=== PATIENT | female | born 1955 | race Caucasian/White ===

== ENCOUNTER → 2017-01-25 | Outpatient (CLI) | payer BC ==
[~2017-01-25] MED LIST: ASPI81TA85 PO; CALC600T60 PO; ESTR625TA PO; MULT1TAB18 PO; VITA400C35 PO; VITA500C24 PO
[2017-01-25 09:00] LABS: MEAN CORPUSCULAR HEMOGLOBIN 34.8 pg (27.0-33.0); MEAN CORPUSCULAR HGB CONC 34.2 g/dl (32.0-36.5); MEAN CORPUSCULAR VOLUME 101.8 fl (80.0-96.0); RED CELL DISTRIBUTION WIDTH 11.3 % (11.5-14.5)
[2017-01-25 09:24] LABS: ALBUMIN 3.7 GM/DL (3.2-5.2); ALBUMIN/GLOBULIN RATIO 1.16 (1.00-1.93); ALKALINE PHOSPHATASE 46 U/L (45-117); ALT/SGPT 16 U/L (12-78); ANION GAP 4 MEQ/L (8-16); AST/SGOT 15 U/L (15-37); BILIRUBIN,TOTAL 0.5 MG/DL (0.2-1.0); BLOOD UREA NITROGEN 10 MG/DL (7-18); CALCIUM LEVEL 9.1 MG/DL (8.8-10.2); CARBON DIOXIDE LEVEL 30 MEQ/L (21-32); CHLORIDE LEVEL 104 MEQ/L (98-107); CHOLESTEROL LEVEL 199 MG/DL (<200); CREATININE FOR GFR 0.85 MG/DL (0.55-1.02); GLOMERULAR FILTRATION RATE > 60.0 (>45); GLUCOSE, FASTING 77 MG/DL (80-110); POTASSIUM SERUM 4.2 MEQ/L (3.5-5.1); SODIUM LEVEL 138 MEQ/L (136-145); TOTAL PROTEIN 6.9 GM/DL (6.4-8.2); TRIGLYCERIDES LEVEL 48 MG/DL (<150)
== END ==
LOC: M LAB 08:02
PROVIDERS: ATTEND Nurse Practitioner Adult Health
DX: E78.2 Mixed hyperlipidemia (principal); R53.83 Other fatigue

== ENCOUNTER 2017-02-21 16:21 | Emergency (ER) | payer BC, OTHER ==
[~2017-02-21] VITALS: Ht 157.5 cm; Wt 48.6 kg
[2017-02-21 16:22] VITALS: BP 112/70
[2017-02-21] MEDS ORDERED: ASPI81TA85 PO (16:42)
[2017-02-21] MEDS ORDERED: VITA500C24 PO (16:42)
[2017-02-21] MEDS ORDERED: MULT1TAB18 PO (16:42)
[2017-02-21] MEDS ORDERED: ESTR625TA PO (16:42)
[2017-02-21] MEDS ORDERED: RABIES VACCINE HUMAN 2.5 INTERNATIONAL UNITS/ML VIAL (90675) IM ONE (17:15)
== END 2017-02-21 17:45 | disposition home or self-care (01) ==
LOC: M ED 16:21
DX: S61.401A Unspecified open wound of right hand, initial encounter (principal); W55.81XA Bitten by other mammals, initial encounter; Y92.9 Unspecified place or not applicable; Y93.9 Activity, unspecified; Y99.8 Other external cause status; Z20.3 Contact with and (suspected) exposure to rabies; Z23 Encounter for immunization; Z90.79 Acquired absence of other genital organ(s); Z88.2 Allergy status to sulfonamides; Z88.8 Allergy status to other drugs, medicaments and biological substances; Z79.82 Long term (current) use of aspirin; Z79.899 Other long term (current) drug therapy

== ENCOUNTER 2017-02-24 16:14 | Emergency (ER) | payer BC, OTHER ==
[~2017-02-24] VITALS: Ht 157.5 cm; Wt 48.6 kg
[2017-02-24 16:14] VITALS: BP 124/64
[~2017-02-24 16:14] MED LIST changes: -CALC600T60 PO; -VITA400C35 PO
[2017-02-24] MEDS ORDERED: VITA400C35 PO (16:26)
[2017-02-24] MEDS ORDERED: CALC600T60 PO (16:26)
[2017-02-24] MEDS ORDERED: ADACEL/BOOSTRIX VACCINE (DIPHTH/PERTUSS/ACELL/TETANUS)0.5ML SYR (90715) IM ONE (17:00)
[2017-02-24] MEDS ORDERED: RABIES VACCINE HUMAN 2.5 INTERNATIONAL UNITS/ML VIAL (90675) IM ONE (17:15)
== END 2017-02-24 17:48 | disposition home or self-care (01) ==
LOC: M ED 16:14
DX: Z20.3 Contact with and (suspected) exposure to rabies (principal); Z23 Encounter for immunization; Z88.2 Allergy status to sulfonamides; Z88.8 Allergy status to other drugs, medicaments and biological substances; Z79.82 Long term (current) use of aspirin; Z79.899 Other long term (current) drug therapy

== ENCOUNTER → 2018-01-31 | Outpatient (CLI) | payer BC ==
[2018-01-31 08:57] LABS: HEMATOCRIT 37.5 % (36.0-47.0); MEAN CORPUSCULAR HEMOGLOBIN 34.9 pg (27.0-33.0); MEAN CORPUSCULAR HGB CONC 34.7 g/dl (32.0-36.5); MEAN CORPUSCULAR VOLUME 100.8 fl (80.0-96.0); PLATELET COUNT, AUTOMATED 238 10^3/uL (150-450); RED BLOOD COUNT 3.72 10^6/uL (4.00-5.40); RED CELL DISTRIBUTION WIDTH 11.8 % (11.5-14.5); WHITE BLOOD COUNT 3.9 10^3/uL (4.0-10.0)
[2018-01-31 09:22] LABS: ALBUMIN 3.7 GM/DL (3.2-5.2); ALBUMIN/GLOBULIN RATIO 1.09 (1.00-1.93); ALKALINE PHOSPHATASE 38 U/L (45-117); ALT/SGPT 28 U/L (12-78); ANION GAP 5 MEQ/L (8-16); AST/SGOT 23 U/L (7-37); BILIRUBIN,TOTAL 0.3 MG/DL (0.2-1.0); BLOOD UREA NITROGEN 16 MG/DL (7-18); CALCIUM LEVEL 8.4 MG/DL (8.8-10.2); CARBON DIOXIDE LEVEL 31 MEQ/L (21-32); CHLORIDE LEVEL 107 MEQ/L (98-107); CHOLESTEROL LEVEL 203 MG/DL (<200); CHOLESTEROL RISK RATIO 1.537 (<5); CREATININE FOR GFR 1.01 MG/DL (0.55-1.30); GLOMERULAR FILTRATION RATE 59.3 (>45); GLUCOSE, FASTING 79 MG/DL (70-100); HDL CHOLESTEROL 132 MG/DL (>40); LDL CHOLESTEROL 59.4 MG/DL (<100); MAGNESIUM LEVEL 2.1 MG/DL (1.8-2.4); NON-HDL-C 71 MG/DL; POTASSIUM SERUM 4.1 MEQ/L (3.5-5.1); SODIUM LEVEL 143 MEQ/L (136-145); TOTAL PROTEIN 7.1 GM/DL (6.4-8.2); TRIGLYCERIDES LEVEL 58 MG/DL (<150)
[2018-02-02 10:27] LABS: VITAMIN B12 LEVEL 894 PG/ML (247-911)
[2018-02-04 00:07] LABS: VITAMIN D 1,25 DIHYDROXY 34.8 pg/mL (19.9-79.3)
== END ==
LOC: M LAB 08:09
DX: R07.89 Other chest pain (principal); Z13.220 Encounter for screening for lipoid disorders; E55.9 Vitamin D deficiency, unspecified; D51.9 Vitamin B12 deficiency anemia, unspecified; R25.2 Cramp and spasm
CPT/HCPCS: 83735

== ENCOUNTER → 2020-12-05 | Outpatient (REF) | payer BC ==
[~2020-12-05] MED LIST changes: -ASPI81TA85 PO; +ASPI81TA86 PO; +CALC600T60 PO; +VITA400C35 PO
== END ==
LOC: M LAB REF 12:05
PROVIDERS: ATTEND Nurse Practitioner Adult Health
DX: R35.0 Frequency of micturition (principal); R31.9 Hematuria, unspecified

== ENCOUNTER → 2021-03-12 | Outpatient (CLI) | payer OTHER ==
[2021-03-12 11:34] LABS: BASO # 0.1 10^3/uL (0.0-0.2); BASO % 1.8 % (0.0-1.0); EOS # 0.1 10^3/uL (0.0-0.5); EOS % 3.2 % (0.0-3.0); HEMATOCRIT 37.9 % (36.0-47.0); HEMOGLOBIN 12.6 g/dl (12.0-15.5); LYMPH # 1.3 10^3/uL (1.5-5.0); LYMPH % 37.2 % (24.0-44.0); MEAN CORPUSCULAR HEMOGLOBIN 33.7 pg (27.0-33.0); MEAN CORPUSCULAR HGB CONC 33.2 g/dl (32.0-36.5); MEAN CORPUSCULAR VOLUME 101.3 fl (80.0-96.0); MONO # 0.4 10^3/uL (0.0-0.8); MONO % 10.9 % (2.0-8.0); NEUTROPHILS # 1.6 10^3/uL (1.5-8.5); NEUTROPHILS % 46.6 % (36.0-66.0); PLATELET COUNT, AUTOMATED 235 10^3/uL (150-450); RED BLOOD COUNT 3.74 10^6/uL (4.00-5.40); WHITE BLOOD COUNT 3.4 10^3/uL (4.0-10.0)
[2021-03-12 11:58] LABS: ERYTHROCYTE SEDIMENTATION RATE 18 mm/hr (0-30)
[2021-03-12 12:21] LABS: ALBUMIN 3.6 GM/DL (3.2-5.2); ALT/SGPT 19 U/L (12-78); BILIRUBIN,TOTAL 0.5 MG/DL (0.2-1.0); BLOOD UREA NITROGEN 12 MG/DL (7-18); CALCIUM LEVEL 9.8 MG/DL (8.8-10.2); CARBON DIOXIDE LEVEL 30 MEQ/L (21-32); CHLORIDE LEVEL 105 MEQ/L (98-107); FOLATE 10.7 NG/ML (>5.4); GLOMERULAR FILTRATION RATE > 60.0 (>45); GLUCOSE, FASTING 79 MG/DL (70-100); RHEUMATOID FACTOR QUANT < 10.0 IU/ML (<15.0); SODIUM LEVEL 140 MEQ/L (136-145); VITAMIN B12 LEVEL 512 PG/ML (247-911)
[2021-03-12 13:16] LABS: HEMOGLOBIN A1c 5.2 %
== END ==
LOC: M WUC 08:14
PROVIDERS: ATTEND Psychiatry & Neurology Neurology
DX: G40.909 Epilepsy, unspecified, not intractable, without status epilepticus (principal)

== ENCOUNTER → 2021-03-29 | Outpatient (CLI) | payer OTHER ==
--- NOTE | 2021-03-30 09:09 | REPMRS ---
Patient History The patient states she had a clinical breast exam on 02-21-21. Patient is postmenopausal and is nulliparous. Family history of colorectal cancer at age 61 in sister. Taking estrogen for 26 years beginning at age 39. Patient states no breast complaints today. Digital Woman Screen Mammo: March 29, 2021 - Exam #: [id number] Bilateral CC and MLO view(s) were taken. Technologist: Rashida Berrios, [employer] Prior study comparison: February 25, 2020, bilateral screening 3D/tomosynthesis, performed at [facility]. February 18, 2019, bilateral screening 3D/tomosynthesis, performed at [facility]. FINDINGS: The breast tissue is extremely dense which could obscure a lesion on mammography. Screening. Digital screening (2D) mammography was performed bilaterally in the CC and MLO projections. Additionally, breast tomosynthesis (3D mammography) was performed bilaterally in the CC and MLO projections. Todays exam was compared to the prior exam/exams. By history, the patient has no complaints of a palpable breast abnormality or other significant breast complaints. The breasts are unchanged in size and shape.Once again, dense heterogenous fibroglandular elements are seen bilaterally in a stable appearing pattern but to such a degree that the sensitivity of the mammogram in detecting cancer is decreased. There are no ulises-soft tissue densities or spiculated masses. There is no internal architectural distortion. Once again, stable benign appearing calcifications are seen.There are no suspicious ulises-calcific clusters. Skin thickening or nipple retraction is not present. IMPRESSION: BI-RADS Category 2- Benign Findings. There is no evidence of malignant alteration of the breasts. Followup examination recommended in one year. The Volpara volumetric breast density category is D, the breasts are extremely dense which lowers the sensitivity of mammography. This mammogram was read with the assistance of [employer],an FDA approved computer aided detection system for mammography. The lifetime Tyrer-Cuzick score is 6.1 % Due to the density of the breasts or Tyrer Cuzick score of 20% or greater, MRI/whole breast screening ultrasound is warranted. Negative x-ray reports should not delay surgical consultation if a dominant or clinically suspicious mass is present. Not all breast cancers can be identified by mammography. Therefore, we recommend that you continue to perform regular breast self-examination and physical examination and then promptly contact your physician of any concerns or changes. Adenosis and dense breasts may obscure an underlying neoplasm. Assessment: BI-RADS/ACR category 2 mammogram. Benign Findings. Recommendation Routine screening mammogram of both breasts in 1 year. Electronically Signed By: Doug Johnson DO 03/30/21 0909
== END ==
LOC: M WHC 16:14
PROVIDERS: ATTEND Nurse Practitioner Adult Health
DX: Z12.31 Encounter for screening mammogram for malignant neoplasm of breast (principal)

== ENCOUNTER → 2021-09-14 | Outpatient (CLI) | payer OTHER ==
[~2021-09-14] MED LIST changes: +BAYE81TA10 PO; +BIMA01SOL OU; +CALC600T61 PO; +FISH1000 PO; +MYRB50TA PO; +OCUVTAB4 PO; +VITA400C50 PO
== END ==
LOC: M LABSMTC 09:17
PROVIDERS: ATTEND Anesthesiology
DX: Z20.828 Contact with and (suspected) exposure to other viral communicable diseases (principal); Z11.59 Encounter for screening for other viral diseases

== ENCOUNTER 2021-09-19 11:51 | Day surgery (SDC) | payer OTHER ==
[~2021-09-19] VITALS: Ht 160 cm; Wt 46.3 kg
[~2021-09-19 11:51] MED LIST changes: +NS 1,000 ML IV ONE
[2021-09-19] MEDS ORDERED: LIDOCAINE 2% 100MG/5ML SDV (FOR ANES.) As Ordered ONE (12:08)
[2021-09-19] MEDS ORDERED: propofoL 200 MG/20 ML VIAL As Ordered ONE (12:08)
[2021-09-19 13:50] VITALS: BP 112/83
== END 2021-09-19 13:52 | disposition home or self-care (01) ==
LOC: M OPP 11:51
PROVIDERS: ATTEND Internal Medicine Gastroenterology
DX: K57.30 Diverticulosis of large intestine without perforation or abscess without bleeding (principal); Z80.0 Family history of malignant neoplasm of digestive organs; K64.1 Second degree hemorrhoids; Z86.73 Personal history of transient ischemic attack (TIA), and cerebral infarction without residual deficits; Z88.2 Allergy status to sulfonamides; Z88.8 Allergy status to other drugs, medicaments and biological substances; Z79.899 Other long term (current) drug therapy

== ENCOUNTER → 2021-11-27 | Outpatient (CLI) | payer MEDICARE, OTHER ==
[~2021-11-27] MED LIST changes: -NS 1,000 ML IV ONE
[2021-11-27 16:41] LABS: BLOOD UREA NITROGEN 11 MG/DL (7-18); GLOMERULAR FILTRATION RATE > 60.0 (>45)
== END ==
LOC: M WUC 10:50
PROVIDERS: ATTEND Psychiatry & Neurology Neurology
DX: I10 Essential (primary) hypertension (principal)

== ENCOUNTER → 2022-09-10 | Outpatient (REF) | payer MEDICARE, OTHER | LOC: M LAB REF 16:30 | PROVIDERS: ATTEND Nurse Practitioner Adult Health | DX: R71.8 Other abnormality of red blood cells (principal) ==

== ENCOUNTER → 2023-10-21 | Outpatient (REF) | payer MEDICARE, OTHER | LOC: M LAB REF 17:33 | PROVIDERS: ATTEND Nurse Practitioner Adult Health | DX: E83.52 Hypercalcemia (principal) ==

== ENCOUNTER → 2023-10-29 | Outpatient (REF) | payer MEDICARE, OTHER | LOC: M LAB REF 12:09 | PROVIDERS: ATTEND Nurse Practitioner Adult Health | DX: H34.231 Retinal artery branch occlusion, right eye (principal) ==

== ENCOUNTER → 2023-11-12 | Outpatient (CLI) | payer MEDICARE, OTHER | LOC: M CARPUL 08:03 | PROVIDERS: ATTEND Ophthalmology | DX: H34.231 Retinal artery branch occlusion, right eye (principal); H34.01 Transient retinal artery occlusion, right eye ==

== ENCOUNTER → 2023-11-13 | Outpatient (CLI) | payer MEDICARE, OTHER ==
[~2023-11-13] MED LIST changes: +PROHANCE 279.3MG/ML 15ML VIAL As Ordered ONE
== END ==
LOC: M PLARAD 14:36 → M RAD 14:36
PROVIDERS: ATTEND Nurse Practitioner Adult Health
DX: H34.231 Retinal artery branch occlusion, right eye (principal)
CPT/HCPCS: 70549; A9576

== ENCOUNTER → 2023-11-21 | Outpatient (CLI) | payer MEDICARE, OTHER ==
[~2023-11-21] MED LIST changes: -PROHANCE 279.3MG/ML 15ML VIAL As Ordered ONE
[2023-11-21 11:43] LABS: INR 0.98; PARTIAL THROMBOPLASTIN TIME 26.2 SECONDS (24.8-34.2); PROTHROMBIN TIME 12.7 SECONDS (12.5-14.5)
== END ==
LOC: M LAB 10:17
PROVIDERS: ATTEND Ophthalmology
DX: H34.231 Retinal artery branch occlusion, right eye (principal)

== ENCOUNTER → 2024-03-04 | Outpatient (CLI) | payer MEDICARE, OTHER | LOC: M RAD 12:53 | PROVIDERS: ATTEND Physician Assistant | DX: R19.7 Diarrhea, unspecified (principal) ==

== ENCOUNTER → 2024-03-05 | Outpatient (REF) | payer MEDICARE, OTHER ==
[2024-03-05 16:00] LABS: CLOSTRIDIUM DIFFICILE PCR NEGATIVE (NEGATIVE)
== END ==
LOC: M LAB REF 14:54
PROVIDERS: ATTEND Physician Assistant
DX: R19.7 Diarrhea, unspecified (principal)

== ENCOUNTER → 2024-07-02 | Outpatient (CLI) | payer MEDICARE, OTHER | LOC: M PLAIMG 07:59 | PROVIDERS: ATTEND Physician Assistant | DX: S43.432A Superior glenoid labrum lesion of left shoulder, initial encounter (principal); M75.122 Complete rotator cuff tear or rupture of left shoulder, not specified as traumatic; M19.012 Primary osteoarthritis, left shoulder; Y93.9 Activity, unspecified; Y92.9 Unspecified place or not applicable ==

== ENCOUNTER → 2025-02-25 | Outpatient (CLI) | payer MEDICARE, OTHER ==
[2025-02-25 11:41] LABS: CREATININE FOR GFR 0.91 MG/DL (0.55-1.30); GLOMERULAR FILTRATION RATE 68.7 (>45)
== END ==
LOC: M LAB 10:02
PROVIDERS: ATTEND Psychiatry & Neurology Neurology
DX: I10 Essential (primary) hypertension (principal)